=== PATIENT | female | born 1955 | race Caucasian/White ===

== ENCOUNTER 2018-12-17 22:28 | Emergency (ER) | payer MEDICARE, OTHER ==
[~2018-12-17] VITALS: Ht 172.7 cm; Wt 99.8 kg
[~2018-12-17 22:28] MED LIST: BUDEPRION SR150 MG PO; FLAGYL500 MG PO; GRALISE600 MG PO; LUNESTA3 MG PO; POT CITRATE-CI1 EACH PO; PRISTIQ ER100 MG PO; PROMETHAZINE-COD5 ML PO; STRATTERA60 MG PO; VITAMIN D1000 UNIT PO; VYVANSE40 MG PO
== END 2018-12-18 00:36 | disposition home or self-care (01) ==
LOC: ED 22:28
DX: S00.11XA Contusion of right eyelid and periocular area, initial encounter (principal); Z87.891 Personal history of nicotine dependence; Z90.710 Acquired absence of both cervix and uterus; Z88.1 Allergy status to other antibiotic agents; Z79.899 Other long term (current) drug therapy; W01.0XXA Fall on same level from slipping, tripping and stumbling without subsequent striking against object, initial encounter; Z23 Encounter for immunization
CPT/HCPCS: 70450; 70486; 90471; 90715; 99283-25

== ENCOUNTER 2022-05-17 11:41 | Emergency (ER) | payer MEDICARE, OTHER ==
[~2022-05-17] VITALS: Ht 172.7 cm; Wt 99.8 kg
--- OUTSIDE RECORDS SUMMARY | 2022-05-17 11:44 | XMS ---
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 EAbhi VISIT COUNT (12 MO.) 1 CHARANJIT Solano TOTAL 1 NOTE: Visits indicate total known visits. ED/UCC VISIT TRACKING (12 MO.) 05/17/2022 11:[address] [facility] [place] TYPE: Emergency COMPLAINT: - FALL,LIGHT HEADED,DIZZY INPATIENT VISIT TRACKING (12 MO.) No inpatient visits to display in this time frame [id number]
== END 2022-05-17 16:30 | disposition home or self-care (01) ==
LOC: ED 11:41
DX: T37.5X1A Poisoning by antiviral drugs, accidental (unintentional), initial encounter (principal); U07.1 COVID-19; Z87.891 Personal history of nicotine dependence; Z88.1 Allergy status to other antibiotic agents; Z79.899 Other long term (current) drug therapy
CPT/HCPCS: 36415; 80053; 85025; 99284; G0480